=== PATIENT | female | born 1965 | race African-American/Black ===

== ENCOUNTER → 2016-09-04 | Outpatient (CLI) | payer OTHER ==
[~2016-09-04] MED LIST: ASPI81TA85 PO; CARV25TA PO; CETI10TA PO; CONRAY-43 43% 50ML VIAL (Q9960) As Ordered ONE; CYCL10TA PO; ESOM1CAP5 PO; GABA-279 PO; LIDO2JELLY TOP; LIDO5DIS36 TD; LIDOCAINE 1% MDV 20ML VIAL As Ordered ONE; MAGN400T5 PO; METH-107 PO; NIFE30TA66 PO; SIMV40TA2 PO; SPIR50TA2 PO; TELM1TAB PO; TRAM50TA2 PO; TRIAMCINOLONE ACETONIDE SUSP 40 MG/ML VIAL (J3301) As Ordered ONE; [UNRECOGNIZED DRUG - OTHER] EX
--- NOTE | 2016-09-04 16:39 | REP ---
Left hip injection The procedure was performed under the direct supervision of Dr. Ernandez. The benefits and risks including but not limited to pain infection and bleeding and anaphylaxis were explained to the patient and informed consent was obtained. The left femoral neck was localized using fluoroscopic guidance. The skin was prepped and draped in a sterile fashion. 1% lidocaine was used as a local anesthetic. Using fluoroscopic guidance a 22-gauge spinal needle was inserted and advanced to the femoral neck. 0.5 ml of Conray 43 was injected to verify placement. 10 ml of a solution containing 9 ml of 1% Xylocaine and 1 ml of Kenalog 40 mg was injected. The needle was then removed. The patient tolerated the procedure well and there were no immediate complications. Two seconds of fluoro time was utilized for this procedure. Reviewed by WILLIAMS Anderson 09/04/2016 03:15 PSigned by Adrien Ernandez MD 09/04/2016 04:30 P
== END ==
LOC: M RADPRO 10:54
PROVIDERS: ATTEND Physician Assistant Medical
DX: M25.552 Pain in left hip (principal); M16.12 Unilateral primary osteoarthritis, left hip
CPT/HCPCS: 20610; 77002; J3301; Q9960

== ENCOUNTER → 2016-12-17 | Outpatient (CLI) | payer OTHER ==
[~2016-12-17] MED LIST changes: -CONRAY-43 43% 50ML VIAL (Q9960) As Ordered ONE; -LIDO5DIS36 TD; +LIDO5DIS41 TD; -LIDOCAINE 1% MDV 20ML VIAL As Ordered ONE; -METH-107 PO; +METH1TAB40 PO; -TRIAMCINOLONE ACETONIDE SUSP 40 MG/ML VIAL (J3301) As Ordered ONE
--- NOTE | 2016-12-17 14:29 | REPMRS ---
Patient History The patient states she had a clinical breast exam in October 2016.Family history of breast cancer in sister at age 39. Digital Mammo Screening Bilat: December 17, 2016 - Exam #: [id number] Bilateral CC and MLO view(s) were taken. Technologist: Khloe Martino, Technologist Prior study comparison: December 07, 2015, digital mammo diagnostic bilateral performed at [facility]. FINDINGS: There are scattered fibroglandular densities. There has been no change in the appearance of the mammogram from the prior studies. There is a mild amount of residual fibroglandular tissue which is fairly symmetric. There is no interval development of dominant mass, architectural distortion, or clustered microcalcification suggestive of malignancy. ASSESSMENT: BI-RADS/ACR category 1 mammogram. Negative. Recommendation Routine screening mammogram in 1 year (for women over age 40). This mammogram was interpreted with the aid of an FDA-approved computer-aided dectection system. Electronically Signed By: Adrian Floyd MD 12/17/16 [id number]
== END ==
LOC: M RAD 13:22
PROVIDERS: ATTEND Family Medicine
DX: Z12.31 Encounter for screening mammogram for malignant neoplasm of breast (principal)

== ENCOUNTER → 2018-02-10 | Outpatient (CLI) | payer OTHER | LOC: M RAD 11:42 | DX: Z12.31 Encounter for screening mammogram for malignant neoplasm of breast (principal); Z80.3 Family history of malignant neoplasm of breast | CPT/HCPCS: 77067 ==